=== PATIENT | female | born 1995 | race Caucasian/White ===

== ENCOUNTER 2017-05-29 18:07 | Emergency (ER) | payer MEDICAID ==
[~2017-05-29] VITALS: Ht 154.9 cm; Wt 70.8 kg
[2017-05-29 21:05] LABS: microscopic required? YES; urine erythrocyte 1+ (NEGATIVE)
[2017-05-29 22:11] VITALS: BP 99/48
== END 2017-05-29 22:11 | disposition home or self-care (01) ==
LOC: ED 18:07
PROVIDERS: Emergency Medicine
DX: N12 Tubulo-interstitial nephritis, not specified as acute or chronic (principal); R51 Headache
CPT/HCPCS: J0696; J1200; J2765; J7030